=== PATIENT | female | born 2005 | race Caucasian/White ===

== ENCOUNTER 2024-04-01 18:49 | Emergency (ER) | payer BC ==
[~2024-04-01] VITALS: Ht 167.6 cm; Wt 104.3 kg
[2024-04-01] MEDS ORDERED: KETOROLAC TROMETHAMINE 60 MG/2 ML VIAL ONE (21:22)
[2024-04-01] MEDS ORDERED: ULTRAM 50MG50 MG PO (21:23)
[2024-04-01 21:37] VITALS: PULSE 73; RESP 18; TEMP 98.6; O2SAT 98
[2024-04-01] MEDS: KETOROLAC TROMETHAMINE 60 MG/2 ML VIAL IM STA (21:44)
== END 2024-04-01 21:37 | disposition home or self-care (01) ==
LOC: FSED 19:13
DX: S93.492A Sprain of other ligament of left ankle, initial encounter (principal); X50.1XXA Overexertion from prolonged static or awkward postures, initial encounter; Y93.01 Activity, walking, marching and hiking; Y92.89 Other specified places as the place of occurrence of the external cause
CPT/HCPCS: 73610; 99283; J1885

== ENCOUNTER → 2024-06-22 | Day surgery (SDC) | payer BC, OTHER ==
[~2024-06-22] MED LIST: ACETAMINOPHEN 1000 MG/100 ML 100 ML IV ONE; CLINDAMYCIN 600MG / 50ML 50 ML IV ONE; DEXAMETHASONE SOD PHOS INJ 4 MG/ML SDV ONE; FAMOTIDINE 20 MG/2 ML VIAL IV ONE; FENTANYL CITRATE/PF 100MCG/2 ML INJ ONE; KETOROLAC TROMETHAMINE 30 MG/ML VIAL ONE; LACTATED RINGER'S 1,000 ML ONE; LIDOCAINE HCL 2% LOCAL INJ 5 ML SDV VIAL INJ ONE; MIDAZOLAM HCL 2 MG/2 ML VIAL ONE; MOTRIN200 MG PO; ONDANSETRON HCL INJ 2MG/ML 2ML 2 MG/ML VIAL ONE; PROPOFOL IV EMULSION 10 MG/ML 20 ML VIAL ONE; SEVOFLURANE INHAL SOLN 250 ML PEN BTL ONE; ULTRAM 50MG50 MG PO
[2024-06-22 14:30] VITALS: BP 118/81; PULSE 74; RESP 18; O2SAT 100
== END | disposition home or self-care (01) ==
LOC: OR 05:46
PROVIDERS: ATTEND Podiatrist Foot & Ankle Surgery
DX: M25.372 Other instability, left ankle (principal); S93.432A Sprain of tibiofibular ligament of left ankle, initial encounter; M76.72 Peroneal tendinitis, left leg; E66.01 Morbid (severe) obesity due to excess calories; M54.9 Dorsalgia, unspecified; Z88.0 Allergy status to penicillin; Z79.1 Long term (current) use of non-steroidal anti-inflammatories (NSAID)
CPT/HCPCS: 27626; 27696; 81025; C1713; C1762; J0131; J1100; J1885; J2003; J2250; J2405; J2704; J3010; J7121